=== PATIENT | male | born 1965 | race Two or more races ===

== ENCOUNTER 2022-04-17 10:56 | Outpatient (CLI) | payer OTHER | END 2022-04-17 10:57 | disposition home or self-care (01) | LOC: SONOGRAMA 10:56 | PROVIDERS: ATTEND Pathology Anatomic Pathology & Clinical Pathology | DX: E07.9 Disorder of thyroid, unspecified (principal); E04.1 Nontoxic single thyroid nodule ==

== ENCOUNTER 2022-06-05 09:37 | Outpatient (CLI) | payer OTHER | END 2022-06-05 10:02 | disposition home or self-care (01) | LOC: SONOGRAMA 09:37 | PROVIDERS: ATTEND Pathology Anatomic Pathology & Clinical Pathology | DX: D34 Benign neoplasm of thyroid gland (principal); E04.9 Nontoxic goiter, unspecified; E07.9 Disorder of thyroid, unspecified; E04.1 Nontoxic single thyroid nodule ==